=== PATIENT | female | born 1995 | race Caucasian/White ===

== ENCOUNTER → 2018-05-08 | Outpatient (CLI) | payer BC, OTHER | LOC: COL.RAD 11:48 | DX: N80.0 Endometriosis of uterus (principal) ==

== ENCOUNTER 2024-03-01 01:57 | Emergency (ER) | payer BC ==
[~2024-03-01] VITALS: Ht 157.5 cm; Wt 75.0 kg
[2024-03-01] MEDS ORDERED: cefTRIAXone 1 G in Water For Injection,Sterile 10 ML IV ONE (02:30)
[2024-03-01] MEDS ORDERED: CEPHALEXIN500 M1 PO (02:37)
[2024-03-01 02:50] VITALS: BP 127/85; PULSE 73; TEMP 98.2
[2024-03-01 02:51] LABS: BASO % 0.4 % (0.0-2.0); EOS # 0.3 K/mm3 (0.0-0.7); EOS % 2.7 % (0.0-4.0); GRAN # 5.4 K/mm3 (1.4-6.5); GRAN % 54.7 % (42.2-75.2); HEMATOCRIT 39.2 % (37.0-47.0); HEMOGLOBIN 12.7 g/dl (12.5-16.0); LYMPH # 3.4 K/mm3 (1.2-3.4); LYMPH % 34.3 % (20.0-51.0); MEAN CELL VOLUME 91 fl (80.0-100.0); MEAN CORPUSCULAR HEMOGLOBIN 29 pg (27-31); MEAN CORPUSCULAR HGB CONC 32 g/dl (33.0-37.0); MEAN PLATELET VOLUME 8.9 fl (7.4-10.4); MONO # 0.7 K/mm3 (0.1-0.6); MONO % 7.5 % (1.7-9.3); PLATELET COUNT 290 K/mm3 (130-400); RED BLOOD COUNT 4.33 M/mm3 (4.10-5.30); REDCELL DISTRIBUTION WIDTH-CV 12.4 % (11.5-14.5)
== END 2024-03-01 02:50 | disposition home or self-care (01) ==
LOC: COL.ER 01:57
PROVIDERS: Personal Emergency Response Attendant
DX: T81.40XA Infection following a procedure, unspecified, initial encounter (principal)
CPT/HCPCS: J0696